=== PATIENT | female | born 2000 | race Caucasian/White ===

== ENCOUNTER 2018-12-27 04:28 | Outpatient (CLI) | payer MEDICAID ==
[~2018-12-27] VITALS: Ht 157.5 cm; Wt 61.2 kg
[~2018-12-27 04:28] MED LIST: ACET500C5 PO; DOCU-144 PO; FER325 PO; FERR134T PO; IBUP-1542 PO; PREN-19 PO
[2018-12-27 04:53] VITALS: BP 119/83; PULSE 93; RESP 16
== END 2018-12-27 09:20 | disposition home or self-care (01) ==
LOC: OBT 04:28 → L-D 04:30 → OBT 09:20
PROVIDERS: ATTEND Obstetrics & Gynecology
DX: O26.893 Other specified pregnancy related conditions, third trimester (principal); Z3A.35 35 weeks gestation of pregnancy; R10.2 Pelvic and perineal pain
CPT/HCPCS: 76815; 80053; 81001; 84560; 85025; Z7500; G0463